=== PATIENT | female | born 1975 | race Caucasian/White ===

== ENCOUNTER → 2018-02-12 16:26 | Outpatient (CLI) | payer MEDICARE, SELFPAY ==
[2014-04-22 14:58] VITALS: BMI 31.1
--- NOTE | 2018-02-12 16:36 | RAD_ITS ---
STUDY: X-RAY CHEST REASON FOR EXAM: Female, 42 years old. Short of breath. TECHNIQUE: Frontal and lateral views of the chest. COMPARISON: None. FINDINGS: The lungs are clear and expanded. There is no demonstrated pleural abnormality. Normal size heart. Normal mediastinum and na. Normal visualized pulmonary arteries. Normal visualized aortic arch and descending thoracic aorta. Normal visualized thoracic spine. Normal visualized ribs, clavicles, and shoulders. There is no demonstrated abnormality of the visualized soft tissue structures of the upper abdomen. RAD/Chest PA and Lateral IMPRESSION: Normal x-ray examination of the chest. Electronically Signed: Jm Cagle MD at 23:49 EST , Service support ,
--- OUTSIDE RECORDS SUMMARY | 2018-05-17 09:16 | XMS RPT_ITS ---
:1975 Author Organization [facility] Care Team Providers Name Role Phone UNKNOWN, PROVIDER Attending Unavailable CELESTE SERNA Referring Unavailable UNKNOWN, PROVIDER Primary Care Unavailable UNKNOWN, PROVIDER Attending Unavailable CELESTE SERNA Referring Unavailable UNKNOWN, PROVIDER Primary Care Unavailable Caleb Byrd Attending Unavailable Caleb Byrd Referring Unavailable Mendez Mcadams Primary Care Unavailable PROBLEMS PROBLEMS DATE TYPE CONDITION / CODE ATTENDING STATUS SOURCE 01/22/2018 Admitting Solitary cyst of Unknown Active [facility] Diagnosis left breast / System N60.02(ICD-10) Repository 01/22/2018 Admitting Solitary cyst of Unknown Active [facility] Diagnosis right breast / System N60.01(ICD-10) Repository 01/22/2018 Admitting Unspecified lump Unknown Active [facility] Diagnosis in the left System breast, Repository unspecified quadrant / N63.20(ICD-10) 01/22/2018 Admitting Unspecified lump Unknown Active [facility] Diagnosis in the right System breast, Repository unspecified quadrant / N63.10(ICD-10) 01/22/2018 Admitting Mastodynia / Unknown Active [facility] Diagnosis N64.4(ICD-10) System Repository PROCEDURES PROCEDURES No Procedure Records FoundRESULTS RESULTS COMP METABOLIC PANEL Collected: 2018 Status: F Source: [employer] 3:02 PM SYSTEM REPOSITORY TYPE CODE TESTS RESULT OUT OF RANGE REFERENCE UNITS LAB NA3 135-145 mmol/L Sodium Normal 137 LAB K3 3.5-5.1 mmol/L Normal Potassium 4.0 LAB CL3 98-107 mmol/L Chloride Normal 103 LAB CO23 22-30 mmol/L Carbon Normal Dioxide 27 LAB ANIN3 NA Anion Gap 7 LAB GLUC3 70-100 mg/dL Glucose Normal 85 LAB BUN3 7-20 mg/dL Urea Normal Nitrogen 11 LAB CRET3 0.52-1.25 mg/dL Normal Creatinine 0.62 LAB GF3BR >60 mL/min eGFR > 60.0 LAB GF3WR >60 mL/min eGFR OTHER > 60.0 Result Comment: Source- MDRD equation with creatinine calibration to IDMS(NKDEP) eGFR not recommended for drug dose adjustment LAB CA3 8.4-10.4 mg/dL Calcium Normal 9.4 LAB ALB3 3.5-5.0 g/dL Albumin, Serum Normal 4.2 LAB TP3 6.3-8.2 g/dL Total Protein Normal 6.8 LAB BILT3 0.2-1.3 mg/dL Normal Bilirubin,Total 0.7 LAB ALKP3 38-126 U/L Alkaline Normal Phosphatase 76 LAB ALT3 13-69 U/L ALT (SGPT) Normal 26 LAB AST3 15-46 U/L Low AST (SGOT) 11 Performed By: #### CMP3, LIPD2, HEMDF #### [facility] [address] [place] [address] LIPID PANEL Collected: 2018 Status: F Source: [employer] 3:02 PM SYSTEM REPOSITORY TYPE CODE TESTS RESULT OUT OF RANGE REFERENCE UNITS LAB 3CHOL < 200 mg/dL Cholesterol Abnormal 218 LAB 3TRIG <150 mg/dL Normal Triglyceride 71 LAB HDLC 40-60 mg/dL Normal HDL Cholesterol 53 LAB LDL4 <100 mg/dL Low Density Abnormal Lipoprotein 151 LAB CHLHD NA Chol/HDL 4 Result Comment: Ref Range: < 3 Low Risk for CHD 3-6 Mod Risk for CHD > 6 High Risk for CHD Performed By: #### CMP3, LIPD2, HEMDF #### [facility] [address] [place] [address] HEMOGRAM W/ AUTODIFF Collected: 2018 Status: F Source: [employer] 3:02 PM SYSTEM REPOSITORY TYPE CODE TESTS RESULT OUT OF REFERENCE UNITS RANGE LAB IWBC 3.6-10.7 10*3/uL WBC Normal 8.1 LAB RBC 3.80-5.20 10*6/uL RBC Normal 4.66 LAB HGB 11.7-16.0 g/dL Hemoglobin Normal 14.2 LAB HCT 35.0-47.0 % Hematocrit Normal 43.1 LAB MCV 79.0-98.0 fL MCV Normal 92.5 LAB MCH 26.0-34.0 pg MCH Normal 30.5 LAB MCHC 32.0-36.0 % MCHC Normal 32.9 LAB RDW 11.5-14.5 % RDW Normal 14.3 LAB PLT 140-440 10*3/uL Platelet Normal 250 LAB MPV 7.4-10.4 fL MPV Normal 8.8 LAB GRAN% 40.0-80.0 % Granulocytes Normal 56.2 LAB LYMP% 20.0-40.0 % Lymphocytes Normal 35.2 LAB MONO% 2.0-10.0 % Monocytes Normal 5.8 LAB EOS% 1.0-6.0 % Eosinophils Normal 2.4 LAB BAS% 0.0-2.0 % Basophils Normal 0.4 LAB ANC 1.8-7.0 10*3/uL Abs Normal Neutrophile Cnt 4.5 LAB ALC 1.0-4.3 10*3/uL Abs Lymph Cnt Normal 2.8 LAB AMC 0.0-0.8 10*3/uL Abs Monocyte Normal Cnt 0.5 LAB AEC 0.0-0.5 10*3/uL Abs Eosin Cnt Normal 0.2 LAB ABC 0.0-0.2 10*3/uL Abs Baso Cnt Normal 0.0 Performed By: #### CMP3, LIPD2, HEMDF #### [facility] [address] [place] [address] CHEST PA AND LATERAL Observed: 02/12/2018 Status: F Source: [facility] 4:36 PM [facility] Imaging Services [address] [place] [address] Chest PA and Lateral MR#: [id number] Acct: [id number] Name: AUNG MATTA Rep #: [id number] : 1975 F 42 From: Jm Cagle MD PCP: Abbe BASS,Mendez Status: REG CLI Study: Chest PA and Lateral Date of Exam: 02/12/18 Exam# [id number] Ordering Dr: Caleb Byrd MD STUDY: X-RAY CHEST REASON FOR EXAM: Female, 42 years old. Short of breath. TECHNIQUE: Frontal and lateral views of the chest. COMPARISON: None. FINDINGS: The lungs are clear and expanded. There is no demonstrated pleural abnormality. Normal size heart. Normal mediastinum and na. Normal visualized pulmonary arteries. Normal visualized aortic arch and descending thoracic aorta. Normal visualized thoracic spine. Normal visualized ribs, clavicles, and shoulders. There is no demonstrated abnormality of the visualized soft tissue structures of the upper abdomen. RAD/Chest PA and Lateral IMPRESSION: Normal x-ray examination of the chest. Electronically Signed: Jm Cagle MD at 23:49 EST , Service support , CC: Mendez Mcadams MD; Caleb Byrd [employer]en [employer]: Signed MG BREAST TOMOSYNTHESIS Observed: 01/22/2018 Status: F Source: [employer] [facility] 12:00 AM SYSTEM REPOSITORY Patient Name: AUNG MATTA Mammography Exam Date/Time 01/22/2018 14:07:33 EST Exam MG Breast Tomosynthesis BI Ordering Physician MD DAPHNE, CELESTE Accession Number [id number] CPT4 Codes 06979 (MG Breast Tomosynthesis BI), 41029 (MG MAMMO 2D DIAG BILAT) Reason For Exam right and left breast lumps Report PATIENT HISTORY: No known family history of cancer. Taking hormonal contraceptives for 25 years. Patient is an every day smoker, and has smoked for 21 years. Patient's BMI is 30.7. TIME SINCE LAST MAMMOGRAM: Last mammogram was performed 1 year and 8 months ago. REASON FOR EXAM: clinical finding. INDICATED PROBLEM: Indicated problem(s): bilateral palpable abnormality for 2 months Bilateral pain for 2 months. PROCEDURE: MG BREAST TOMOSYNTHESIS BL: JANUARY 22, 2018 - 2D/3D Procedure 3D Bilateral CC and MLO view(s) were taken. 2D Bilateral CC and MLO view(s) were taken. Prior study comparison: June 09, 2016, MG breast tomosynthesis left performed at [facility]. May 27, 2016, bilateral MG breast tomosynthesis bl scr, performed at [facility] at [facility]. TISSUE DENSITY: The breast tissue is extremely dense, which may lower the sensitivity of mammography. . FINDINGS: The patient presents today for diffuse bilateral breast pain along with palpable masses within both breasts. The patient's physician palpated a mass within the right breast at the 9:00 position and within the left breast at the 6:00 position. Mammographic images today show a circumscribed round mass underlying the area of palpable concern within the superior lateral quadrant of the right breast. Additionally, there is a circumscribed mass within the inferior medial right breast, middle depth. No mammographic abnormality is seen underlying the area of palpable concern within the left breast. There are no suspicious microcalcifications or areas of architectural distortion within either breast. No skin thickening or nipple retraction is seen. Ultrasound of both breasts was performed for further evaluation. Right breast: Underlying the area of palpable concern at the 11:30 position, 3 cm the nipple is a circumscribed anechoic cyst which measures 2.0 x 1.7 x 1.9 cm in size. There is no overlying vascular flow. This correlates with the mammographic finding. At the 9:00 position, 7 cm from the nipple also underlying the area of palpable concern is a circumscribed anechoic cyst measuring 1.4 x 0.9 x 1.4 cm in size. No overlying vascular flow is present. At the 3:00 position, 2 cm from the nipple is an additional circumscribed anechoic cyst which measures 0.9 x 0.5 x 0.9 cm in size. No overlying vascular flow is present. Left breast: Underlying the area of palpable concern at the 2:30 position, 5 cm from the nipple is a circumscribed anechoic cyst which measures 1.1 x 0.5 x 1.1 cm in size. There is posterior acoustic enhancement. No overlying vascular flow is present. No sonographic abnormality is seen in the 6:00 position underlying the area palpated by the patient's physician. IMPRESSION: Bilateral simple benign cysts underlying the areas of palpable concern within both breasts. Markings on images: BB's = Nipples; skin lesions [place] = Palpable Line = Scar US BREAST LIMITED RIGHT: JANUARY 22, 2018 - Technologist: Kimber Be RDMS US BREAST LIMITED LEFT: JANUARY 22, 2018 - Technologist: Kimber Be RDMS 2D digital mammography and tomosynthesis imaging were performed and reviewed with CAD. ASSESSMENT: Category 2 Benign (Overall) RECOMMENDATION: Routine screening mammogram of both breasts in 1 year. . Report Dictated on Final Signed Date and Time: 01/22/2018 4:09 pm Signed by: MD BOWLING YUN ROBERT US BREAST LIMITED Observed: 01/22/2018 Status: F Source: [employer] [facility] 12:00 AM SYSTEM REPOSITORY Patient Name: AUNG MATTA Ultrasound Exam Date/Time 01/22/2018 15:37:54 EST Exam US Breast Limited Right Ordering Physician MD SERNA DIANA Accession Number [id number] CPT4 Codes 54224 () Reason For Exam N64.4, breast pain Report PATIENT HISTORY: No known family history of cancer. Taking hormonal contraceptives for 25 years. Patient is an every day smoker, and has smoked for 21 years. Patient's BMI is 30.7. TIME SINCE LAST MAMMOGRAM: Last mammogram was performed 1 year and 8 months ago. REASON FOR EXAM: clinical finding. INDICATED PROBLEM: Indicated problem(s): bilateral palpable abnormality for 2 months Bilateral pain for 2 months. PROCEDURE: MG BREAST TOMOSYNTHESIS BL: JANUARY 22, 2018 - 2D/3D Procedure 3D Bilateral CC and MLO view(s) were taken. 2D Bilateral CC and MLO view(s) were taken. Prior study comparison: June 09, 2016, MG breast tomosynthesis left performed at [facility]. May 27, 2016, bilateral MG breast tomosynthesis bl scr, performed at [facility] at [facility]. TISSUE DENSITY: The breast tissue is extremely dense, which may lower the sensitivity of mammography. . FINDINGS: The patient presents today for diffuse bilateral breast pain along with palpable masses within both breasts. The patient's physician palpated a mass within the right breast at the 9:00 position and within the left breast at the 6:00 position. Mammographic images today show a circumscribed round mass underlying the area of palpable concern within the superior lateral quadrant of the right breast. Additionally, there is a circumscribed mass within the inferior medial right breast, middle depth. No mammographic abnormality is seen underlying the area of palpable concern within the left breast. There are no suspicious microcalcifications or areas of architectural distortion within either breast. No skin thickening or nipple retraction is seen. Ultrasound of both breasts was performed for further evaluation. Right breast: Underlying the area of palpable concern at the 11:30 position, 3 cm the nipple is a circumscribed anechoic cyst which measures 2.0 x 1.7 x 1.9 cm in size. There is no overlying vascular flow. This correlates with the mammographic finding. At the 9:00 position, 7 cm from the nipple also underlying the area of palpable concern is a circumscribed anechoic cyst measuring 1.4 x 0.9 x 1.4 cm in size. No overlying vascular flow is present. At the 3:00 position, 2 cm from the nipple is an additional circumscribed anechoic cyst which measures 0.9 x 0.5 x 0.9 cm in size. No overlying vascular flow is present. Left breast: Underlying the area of palpable concern at the 2:30 position, 5 cm from the nipple is a circumscribed anechoic cyst which measures 1.1 x 0.5 x 1.1 cm in size. There is posterior acoustic enhancement. No overlying vascular flow is present. No sonographic abnormality is seen in the 6:00 position underlying the area palpated by the patient's physician. IMPRESSION: Bilateral simple benign cysts underlying the areas of palpable concern within both breasts. Markings on images: BB's = Nipples; skin lesions [place] = Palpable Line = Scar US BREAST LIMITED RIGHT: JANUARY 22, 2018 - Technologist: Kimber Be RDMS US BREAST LIMITED LEFT: JANUARY 22, 2018 - Technologist: Kimber Be RDMS 2D digital mammography and tomosynthesis imaging were performed and reviewed with CAD. ASSESSMENT: Category 2 Benign (Overall) RECOMMENDATION: Routine screening mammogram of both breasts in 1 year. . Report Dictated on Final Signed Date and Time: 01/22/2018 4:09 pm Signed by: MD BOWLING YUN ROBERT US BREAST LIMITED Observed: 01/22/2018 Status: F Source: [facility] 12:00 AM SYSTEM REPOSITORY Patient Name: AUNG MATTA Ultrasound Exam Date/Time 01/22/2018 15:38:05 EST Exam US Breast Limited Left Ordering Physician MD SERNA DIANA Accession Number [id number] CPT4 Codes 63019 () Reason For Exam N64.4, breast pain Report PATIENT HISTORY: No known family history of cancer. Taking hormonal contraceptives for 25 years. Patient is an every day smoker, and has smoked for 21 years. Patient's BMI is 30.7. TIME SINCE LAST MAMMOGRAM: Last mammogram was performed 1 year and 8 months ago. REASON FOR EXAM: clinical finding. INDICATED PROBLEM: Indicated problem(s): bilateral palpable abnormality for 2 months Bilateral pain for 2 months. PROCEDURE: MG BREAST TOMOSYNTHESIS BL: JANUARY 22, 2018 - 2D/3D Procedure 3D Bilateral CC and MLO view(s) were taken. 2D Bilateral CC and MLO view(s) were taken. Prior study comparison: June 09, 2016, MG breast tomosynthesis left performed at [facility]. May 27, 2016, bilateral MG breast tomosynthesis bl scr, performed at [facility] at [facility]. TISSUE DENSITY: The breast tissue is extremely dense, which may lower the sensitivity of mammography. . FINDINGS: The patient presents today for diffuse bilateral breast pain along with palpable masses within both breasts. The patient's physician palpated a mass within the right breast at the 9:00 position and within the left breast at the 6:00 position. Mammographic images today show a circumscribed round mass underlying the area of palpable concern within the superior lateral quadrant of the right breast. Additionally, there is a circumscribed mass within the inferior medial right breast, middle depth. No mammographic abnormality is seen underlying the area of palpable concern within the left breast. There are no suspicious microcalcifications or areas of architectural distortion within either breast. No skin thickening or nipple retraction is seen. Ultrasound of both breasts was performed for further evaluation. Right breast: Underlying the area of palpable concern at the 11:30 position, 3 cm the nipple is a circumscribed anechoic cyst which measures 2.0 x 1.7 x 1.9 cm in size. There is no overlying vascular flow. This correlates with the mammographic finding. At the 9:00 position, 7 cm from the nipple also underlying the area of palpable concern is a circumscribed anechoic cyst measuring 1.4 x 0.9 x 1.4 cm in size. No overlying vascular flow is present. At the 3:00 position, 2 cm from the nipple is an additional circumscribed anechoic cyst which measures 0.9 x 0.5 x 0.9 cm in size. No overlying vascular flow is present. Left breast: Underlying the area of palpable concern at the 2:30 position, 5 cm from the nipple is a circumscribed anechoic cyst which measures 1.1 x 0.5 x 1.1 cm in size. There is posterior acoustic enhancement. No overlying vascular flow is present. No sonographic abnormality is seen in the 6:00 position underlying the area palpated by the patient's physician. IMPRESSION: Bilateral simple benign cysts underlying the areas of palpable concern within both breasts. Markings on images: BB's = Nipples; skin lesions [place] = Palpable Line = Scar US BREAST LIMITED RIGHT: JANUARY 22, 2018 - Technologist: Kimber Be RDMS US BREAST LIMITED LEFT: JANUARY 22, 2018 - Technologist: Kimber Be RDMS 2D digital mammography and tomosynthesis imaging were performed and reviewed with CAD. ASSESSMENT: Category 2 Benign (Overall) RECOMMENDATION: Routine screening mammogram of both breasts in 1 year. . Report Dictated on Final Signed Date and Time: 01/22/2018 4:09 pm Signed by: MD BOWLING YUN ROBERT ALLERGIES ALLERGIES DATE TYPE / CODE NAME / CODE REACTION SEVERITY SOURCE 04/22/2014 [facility] [address](SNOMED Antibiotics)/ Repository CT) [id number](RX NORM) ENCOUNTERS ENCOUNTERS ADMIT/DISCHARGE ACCOUNT NUMBER ADMITTING ENCOUNTER LOCATION SOURCE CLASS 2018 [id number] Ambulatory [facility] Repository 02/12/2018 [id number] [facility] ding:MTRAD Repository 01/22/2018 [id number] Ambulatory [facility] Repository PAYERS PAYERS ENCOUNTER GUARANTOR PAYER SUBSCRIBER SOURCE 2018 Aung HumbleDOB: Primary Aung StarkeyDOB: ExtendEvent [place] Insurance:[employer] [id number] System Home [place] [place] [address]Pja: ShieldPolicy Number: Effective Date: () 02/12/2018 AUNG HALINA [facility] Insurance:JUAN ENCINASB: [facility] [place], [place] MEDICARE SENIOR [id number] [facility] [address]Nof: [phone] ADVANTAPolicy Number: Repository [phone] () [id number] Date:[id number] [address]KM: 02/12/2018 Secondary NOT GIVENUNK Genia Insurance:SELF PAY [facility] Number: Effective Repository Date:2018-02-12 01/22/2018 Aung HumbleDOB: Primary Aung StarkeyDOB: ExtendEvent [place] Insurance:[employer] [id number] System [address] [place] [place] [address]Kui: ShieldPolicy Number: Effective Date: ()
== END ==
LOC: MTRAD 16:33
PROVIDERS: Family Provider Family Medicine; PCP Family Medicine; Referring Provider Internal Medicine Gastroenterology; Visit Provider Internal Medicine Gastroenterology
DX: R06.00 Dyspnea, unspecified (principal)
CPT/HCPCS: 71046

== ENCOUNTER → 2019-04-01 16:33 | Outpatient (CLI) | payer MEDICARE, SELFPAY ==
[2014-04-22 14:58] VITALS: BMI 31.1
== END ==
PROVIDERS: PCP Family Medicine; Referring Provider Internal Medicine Pulmonary Disease; Visit Provider Internal Medicine Pulmonary Disease
DX: G47.10 Hypersomnia, unspecified (principal); G47.33 Obstructive sleep apnea (adult) (pediatric)